=== PATIENT | male | born 1970 | race African-American/Black ===

== ENCOUNTER 2017-06-28 19:15 | Inpatient (IN) | payer OTHER ==
[2017-06-28] MEDS ORDERED: ONDANSETRON 4 MG INJ IV (21:30)
[2017-06-28] MEDS ORDERED: BISACODYL (EC) 5 MG TAB PO (21:30)
[2017-06-28] MEDS ORDERED: ACETAMINOPHEN 325 MG TAB PO (21:30)
[2017-06-28] MEDS ORDERED: DOCUSATE SODIUM 100 MG CAP PO (21:30)
[2017-06-28] MEDS ORDERED: NACL 0.9% 3 ML SYG IV (21:30)
[2017-06-28 23:35] LABS: CHOL/HDL RATIO 3.6 RATIO; CHOLESTEROL 178 mg/dl (100-200); HDL CHOLESTEROL 49 mg/dl (27-67); LDL CHOLESTEROL,CALCULATED 110 mg/dl; TRIGLYCERIDES 95 mg/dl (0-149)
[2017-06-28 23:35] LABS: MAGNESIUM 1.8 mg/dl (1.7-2.5)
[2017-06-29 07:56] LABS: HEMOGLOBIN A1C 5.3 % (0-5.9)
[2017-06-29 08:29] LABS: ADD MAN DIFF? NO
[2017-06-29 08:34] LABS: BASOPHILS % 0.5 % (0.0-2.0); EOSINOPHILS # 0.1 10^3/ul (0.0-0.5); EOSINOPHILS % 2.5 % (0.0-7.0); HEMATOCRIT 49.2 % (42.0-52.0); LYMPHOCYTES # 1.6 10^3/ul (0.8-2.9); MEAN CORPUSCULAR HGB CONC 34.6 g/dl (32.0-37.0); MEAN CORPUSCULAR VOLUME 89.6 fl (82.0-101.0); MEAN PLATELET VOLUME 9.2 fl (7.4-10.4); MONOCYTE # 0.2 10^3/ul (0.3-0.9); MONOCYTES % 5.6 % (0.0-11.0); NEUTROPHILS % 50.1 % (39.0-77.0); PLATELET COUNT 257 10^3/UL (140-415); RED BLOOD COUNT 5.49 10^6/ul (4.70-6.10); RED CELL DISTRIBUTION WIDTH 11.9 % (11.5-14.5)
[2017-06-29 09:02] LABS: IRON 192 ug/dl (35-150)
[2017-06-29 09:04] LABS: ALANINE AMINOTRANSFERASE 37 IU/L (13-69); ALBUMIN/GLOBULIN RATIO 1.42; ALKALINE PHOSPHATASE 60 IU/L (42-121); ANION GAP 18 (8-16); ASPARTATE AMINO TRANSFERASE 32 IU/L (15-46); BILIRUBIN,INDIRECT 2.3 mg/dl (0-1.1); BILIRUBIN,TOTAL 2.3 mg/dl (0.2-1.3); BLOOD UREA NITROGEN 12 mg/dl (7-20); CALCIUM 9.8 mg/dl (8.4-10.2); CARBON DIOXIDE 31 mmol/L (21-31); CHLORIDE 101 mmol/L (97-110); CREATININE 1.04 mg/dl (0.61-1.24); GLUCOSE 135 mg/dl (70-220); SODIUM 146 mmol/L (135-144); TOTAL PROTEIN 8.5 g/dl (6.1-8.1)
[2017-06-29 09:12] LABS: % IRON SATURATION 76 % SAT (22-52); TOTAL IRON BINDING CAPACITY 253 ug/dl (241-421)
[2017-06-29 10:33] LABS: HIV 1&2 ANTIBODY NEGATIVE (NEGATIVE)
[2017-06-29 10:39] LABS: FOLATE 7.4 ng/ml (2.8-20.0)
[2017-06-29 16:14] LABS: AMPHETAMINE/METHAMPHETAMINE Negative (NEGATIVE); BARBITURATES Negative (NEGATIVE); BENZODIAZEPINES Negative (NEGATIVE); CANNABINOIDS Negative (NEGATIVE); COCAINE Negative (NEGATIVE); OPIATES Negative (NEGATIVE)
[2017-06-29] MEDS: DEXTROSE 5% 1,000 ML IV (18:49)
[2017-06-29] MEDS: AMLODIPINE 5 MG TAB PO (22:30)
[2017-06-30] MEDS: AMLODIPINE 5 MG TAB PO (08:45)
[2017-06-30 09:23] LABS: ADD MAN DIFF? NO; BASOPHILS % 0.8 % (0.0-2.0); EOSINOPHILS # 0.1 10^3/ul (0.0-0.5); EOSINOPHILS % 2.4 % (0.0-7.0); HEMATOCRIT 47.6 % (42.0-52.0); HEMOGLOBIN 16.6 g/dl (14.0-18.0); LYMPHOCYTES # 2.4 10^3/ul (0.8-2.9); LYMPHOCYTES % 47.8 % (15.0-51.0); MEAN CORPUSCULAR HEMOGLOBIN 31.5 pg (29.0-33.0); MEAN CORPUSCULAR HGB CONC 34.9 g/dl (32.0-37.0); MEAN CORPUSCULAR VOLUME 90.3 fl (82.0-101.0); MEAN PLATELET VOLUME 9.9 fl (7.4-10.4); MONOCYTE # 0.3 10^3/ul (0.3-0.9); MONOCYTES % 6.3 % (0.0-11.0); NEUTROPHIL # 2.1 10^3/ul (1.6-7.5); NEUTROPHILS % 42.3 % (39.0-77.0); PLATELET COUNT 285 10^3/UL (140-415); RED BLOOD COUNT 5.27 10^6/ul (4.70-6.10); RED CELL DISTRIBUTION WIDTH 12.1 % (11.5-14.5)
[2017-06-30 09:50] LABS: ALANINE AMINOTRANSFERASE 35 IU/L (13-69); ALBUMIN 4.7 g/dl (3.3-4.9); ALBUMIN/GLOBULIN RATIO 1.34; ALKALINE PHOSPHATASE 61 IU/L (42-121); ANION GAP 16 (8-16); ASPARTATE AMINO TRANSFERASE 32 IU/L (15-46); BILIRUBIN,INDIRECT 1.9 mg/dl (0-1.1); BILIRUBIN,TOTAL 1.9 mg/dl (0.2-1.3); BLOOD UREA NITROGEN 14 mg/dl (7-20); CALCIUM 9.4 mg/dl (8.4-10.2); CARBON DIOXIDE 30 mmol/L (21-31); CHLORIDE 102 mmol/L (97-110); CREATININE 0.96 mg/dl (0.61-1.24); GLUCOSE 103 mg/dl (70-220); POTASSIUM 3.7 mmol/L (3.5-5.1); SODIUM 144 mmol/L (135-144); TOTAL PROTEIN 8.2 g/dl (6.1-8.1)
[2017-06-30 09:58] LABS: PHOSPHORUS 3.2 mg/dl (2.5-4.9)
== END 2017-06-30 11:55 | disposition home or self-care (01) | DRG 69 ==
LOC: MS4 19:15
PROVIDERS: Internal Medicine
DX: G45.9 Transient cerebral ischemic attack, unspecified (principal); E86.0 Dehydration; I10 Essential (primary) hypertension; I95.1 Orthostatic hypotension; M79.605 Pain in left leg; M79.604 Pain in right leg; R53.1 Weakness; R42 Dizziness and giddiness
CPT/HCPCS: 80053; 80061; 80307; 82306; 82607; 82728; 82746; 83036; 83540; 83735; 84100; 84425; 84443; 85025; 86703; 87081; 93306; 93923